=== PATIENT | male | born 1970 | race Caucasian/White ===

== ENCOUNTER 2019-01-29 08:55 | Emergency (ER) | payer SELFPAY ==
[~2019-01-29] VITALS: Ht 165.1 cm; Wt 75.7 kg
[~2019-01-29 08:55] MED LIST: AMLO-147 PO; ASPI-903 PO; BEN25 PO; FAMO-96 PO; LOSA50TA14 PO; PRED20TA PO
[2019-01-29 08:57] VITALS: Ht 165.1 cm; Wt 75.7 kg
[2019-01-29] MEDS ORDERED: SOD CHLORIDE 0.9% 1,000 ML IV STA (10:01)
[2019-01-29] MEDS ORDERED: FAMOTIDINE 20 MG TAB PO STA (10:01)
[2019-01-29] MEDS ORDERED: LACTATED RINGER'S 1,000 ML IV STA (10:01)
[2019-01-29] MEDS ORDERED: METHYLPREDNISOLONE 125 MG INJ IV ONE (10:30)
[2019-01-29] MEDS ORDERED: DIPHENHYDRAMINE 50 MG INJ IV ONE (10:30)
[2019-01-29 12:04] VITALS: BP 132/77; PULSE 98; RESP 18
== END 2019-01-29 12:05 | disposition home or self-care (01) ==
LOC: E/R 08:55
DX: L50.0 Allergic urticaria (principal); I10 Essential (primary) hypertension
CPT/HCPCS: 36415; 80048; 85025; 96374; 96375; 99284; J1200; J2930; J7030; J7120